=== PATIENT | female | born 1960 | race Caucasian/White ===

== ENCOUNTER → 2021-01-17 09:00 | Outpatient (CLI) | payer BC, SELFPAY ==
[2021-01-17] MEDS: COVID-19 VACC #1, MRNA(MOD) 100 MCG/0.5 ML VIAL IM (09:11)
== END ==
PROVIDERS: Visit Provider Internal Medicine
DX: Z23 Encounter for immunization (principal)
CPT/HCPCS: 0011A; 91301

== ENCOUNTER → 2021-02-14 08:44 | Outpatient (CLI) | payer BC, SELFPAY ==
[2021-02-14] MEDS: COVID-19 VACC #2, MRNA(MOD) 100 MCG/0.5 ML VIAL IM (08:49)
== END ==
PROVIDERS: Visit Provider Internal Medicine
DX: Z23 Encounter for immunization (principal)
CPT/HCPCS: 0012A; 91301

== ENCOUNTER → 2021-07-28 10:40 | Outpatient (CLI) | payer BC, SELFPAY ==
[2021-07-28 11:41] LABS: Alanine Aminotransferase 17 IU/L (<35); Aspartate Aminotransferase 25 IU/L (14-36)
== END ==
DX: Z51.81 Encounter for therapeutic drug level monitoring (principal); B35.1 Tinea unguium
CPT/HCPCS: 36415; 84450; 84460

== ENCOUNTER → 2022-02-12 09:48 | Outpatient (CLI) | payer BC, SELFPAY ==
[2022-02-12 11:08] LABS: Alanine Aminotransferase 19 IU/L (<35); Aspartate Aminotransferase 26 IU/L (14-36)
== END ==
PROVIDERS: Referring Provider Podiatrist; Visit Provider Podiatrist
DX: B35.1 Tinea unguium (principal); Z51.81 Encounter for therapeutic drug level monitoring; L60.3 Nail dystrophy
CPT/HCPCS: 36415; 84450; 84460

== ENCOUNTER → 2025-01-03 10:23 | Outpatient (CLI) | payer MEDICARE, SELFPAY ==
[2025-01-03 11:41] LABS: Influenza A - CEPHEID Flu A NEGATIVE (NEGATIVE); Influenza B - CEPHEID Flu B NEGATIVE (NEGATIVE); Respiratory Syncytial Virus Negative (Negative)
[2025-01-03 11:43] LABS: COVID-19 CEPHEID 4-PLEX PCR Negative (Negative)
== END ==
PROVIDERS: Visit Provider Nurse Practitioner Family
DX: R05.1 Acute cough (principal)
CPT/HCPCS: 0241U

== ENCOUNTER → 2025-01-03 10:46 | Outpatient (CLI) | payer MEDICARE, SELFPAY ==
--- NOTE | 2025-01-03 10:48 | DI.RAD.S_ITS ---
PROCEDURE: XR CHEST 2V INDICATIONS: Cough TECHNIQUE: 2 views of the chest were acquired. COMPARISON: None. FINDINGS: Surgical changes and devices: None. Lungs and pleura: Lungs are clear. No pleural effusions or pneumothorax. Mediastinum: Mediastinal contours are normal. Heart size is normal. Bones and chest wall: No suspicious bony abnormalities. Soft tissues appear unremarkable. IMPRESSION: No acute cardiopulmonary abnormality is seen. Dictated by: Linda Robbins MD, PhD on 01/03/2025 at 12:39 Approved by: Linda Robbins MD, PhD on 01/03/2025 at 12:39
== END ==
PROVIDERS: Referring Provider Nurse Practitioner Family; Visit Provider Nurse Practitioner Family
DX: R05.1 Acute cough (principal)
CPT/HCPCS: 0241U; 71046

== ENCOUNTER → 2025-06-26 08:28 | Outpatient (CLI) | payer MEDICARE, SELFPAY ==
[2025-06-26 09:22] LABS: Alanine Aminotransferase 21 IU/L (<35); Albumin 4.6 g/dL (3.5-5.0); Albumin Globulin Ratio 1.6 (1.0-2.8); Alkaline Phosphatase 54 U/L (38-126); Blood Urea Nitrogen 9 mg/dL (7-17); Calcium 10.0 mg/dL (8.4-10.2); Carbon Dioxide 21 mmol/L (22-32); Chloride 105 mmol/L (98-107); Cholesterol 185 mg/dL (140-199); Estimated Glomerular Filt Rate > 60 mL/min (>60); Globulin 2.8 g/dL (1.7-4.1); Glucose 102 mg/dL (70-99); HDL Cholesterol 99 mg/dL (40-60); HEMOLYSIS < 15 (0-50); Potassium 4.2 mmol/L (3.4-5.1); Sodium 139 mmol/L (137-145); Total Protein 7.4 g/dL (6.3-8.2); Triglycerides 109 mg/dL (35-150)
== END ==
PROVIDERS: Visit Provider Family Medicine
DX: E78.00 Pure hypercholesterolemia, unspecified (principal); I10 Essential (primary) hypertension
CPT/HCPCS: 36415; 80053; 80061